=== PATIENT | female | born 2000 | race Caucasian/White ===

== ENCOUNTER → 2019-08-13 | Outpatient (REF) | LOC: M LAB LCGH 15:49 | PROVIDERS: ATTEND Obstetrics & Gynecology | DX: O28.1 Abnormal biochemical finding on antenatal screening of mother (principal); Z3A.00 Weeks of gestation of pregnancy not specified ==

== ENCOUNTER → 2023-12-25 | Outpatient (REF) | LOC: M EMP 09:23 | PROVIDERS: ATTEND Family Medicine | DX: Z11.52 Encounter for screening for COVID-19 (principal) ==

== ENCOUNTER → 2023-12-25 | Outpatient (REF) | LOC: M EMP 09:21 | PROVIDERS: ATTEND Family Medicine | DX: Z11.52 Encounter for screening for COVID-19 (principal) ==

== ENCOUNTER 2024-01-15 05:47 | Emergency (ER) | payer OTHER ==
[~2024-01-15] VITALS: Ht 177.8 cm; Wt 72.0 kg
[2024-01-15 07:15] LABS: BASO # 0.1 10^3/uL (0.0-0.2); BASO % 0.6 % (0.0-1.0); EOS # 0.2 10^3/uL (0.0-0.5); EOS % 1.5 % (0.0-3.0); HEMATOCRIT 42.9 % (36.0-47.0); HEMOGLOBIN 13.6 g/dl (12.0-15.5); LYMPH # 2.3 10^3/uL (1.5-5.0); LYMPH % 21.4 % (24.0-44.0); MEAN CORPUSCULAR HEMOGLOBIN 28.1 pg (27.0-33.0); MEAN CORPUSCULAR HGB CONC 31.7 g/dl (32.0-36.5); MEAN CORPUSCULAR VOLUME 88.6 fl (80.0-96.0); MONO # 0.7 10^3/uL (0.0-0.8); MONO % 6.7 % (2.0-8.0); NEUTROPHILS # 7.4 10^3/uL (1.5-8.5); NEUTROPHILS % 69.4 % (36.0-66.0); PLATELET COUNT, AUTOMATED 213 10^3/uL (150-450); RED BLOOD COUNT 4.84 10^6/uL (4.00-5.40); WHITE BLOOD COUNT 10.7 10^3/uL (4.0-10.0)
[2024-01-15] MEDS ORDERED: NITR100C3 PO (07:36)
[2024-01-15 07:51] VITALS: BP 121/72; TEMP 97.8; O2SAT 99
[2024-01-15] MEDS: NAPROXEN 250 MG TAB PO ONE (07:54)
[2024-01-15] MEDS: NITROFURANTOIN (MACROBID) 100 MG CAP PO ONE (07:54)
== END 2024-01-15 08:32 | disposition home or self-care (01) ==
LOC: M ED 05:47
DX: N30.00 Acute cystitis without hematuria (principal); F41.9 Anxiety disorder, unspecified; Z88.5 Allergy status to narcotic agent

== ENCOUNTER 2024-04-21 19:57 | Emergency (ER) | payer OTHER ==
[~2024-04-21] VITALS: Ht 177.8 cm; Wt 73.7 kg
[~2024-04-21 19:57] MED LIST: NITR100C3 PO
[2024-04-21 20:00] VITALS: BP 111/70; TEMP 98.2; O2SAT 100
[2024-04-21 21:00] LABS: BASO % 0.3 % (0.0-1.0); EOS # 0.2 10^3/uL (0.0-0.5); EOS % 2.2 % (0.0-3.0); HEMATOCRIT 35.3 % (36.0-47.0); HEMOGLOBIN 11.9 g/dl (12.0-15.5); LYMPH # 2.4 10^3/uL (1.5-5.0); LYMPH % 25.2 % (24.0-44.0); MEAN CORPUSCULAR HEMOGLOBIN 29.8 pg (27.0-33.0); MEAN CORPUSCULAR HGB CONC 33.7 g/dl (32.0-36.5); MEAN CORPUSCULAR VOLUME 88.5 fl (80.0-96.0); MONO # 0.6 10^3/uL (0.0-0.8); MONO % 5.8 % (2.0-8.0); NEUTROPHILS # 6.3 10^3/uL (1.5-8.5); NEUTROPHILS % 66.3 % (36.0-66.0); PLATELET COUNT, AUTOMATED 149 10^3/uL (150-450); RED BLOOD COUNT 3.99 10^6/uL (4.00-5.40); WHITE BLOOD COUNT 9.5 10^3/uL (4.0-10.0)
[2024-04-21 21:33] LABS: CPK CREATINE PHOSPHOKINASE 27 U/L (34-145)
[2024-04-21 21:34] LABS: ALBUMIN 3.1 G/DL (3.2-5.2); ALKALINE PHOSPHATASE 58 U/L (35-104); ALT/SGPT < 9 U/L (7.0-40); AST/SGOT < 8 U/L (<34); BILIRUBIN,DIRECT < 0.1 MG/DL (<0.4); BILIRUBIN,TOTAL 0.2 MG/DL (0.3-1.2); BLOOD UREA NITROGEN 11 MG/DL (9-23); CALCIUM LEVEL 8.9 MG/DL (8.5-10.1); CARBON DIOXIDE LEVEL 24 MMOL/L (20-31); CHLORIDE LEVEL 109 MMOL/L (98-107); CK-MB VALUE MASS < 1.0 NG/ML (<3.6); GLOMERULAR FILTRATION RATE > 60.0 (>60); GLUCOSE, FASTING 87 MG/DL (60-100); POTASSIUM SERUM 3.6 MMOL/L (3.5-5.1); SODIUM LEVEL 139 MMOL/L (136-145); TOTAL PROTEIN 6.1 G/DL (5.7-8.2)
== END 2024-04-21 22:53 | disposition left against medical advice (07) ==
LOC: M ED 19:57
DX: Z53.21 Procedure and treatment not carried out due to patient leaving prior to being seen by health care provider (principal)

== ENCOUNTER 2024-04-23 05:06 | Emergency (ER) | payer OTHER ==
[~2024-04-23] VITALS: Ht 177.8 cm; Wt 73.3 kg
[2024-04-23] MEDS ORDERED: ASPI81CH33 PO (05:26)
[2024-04-23] MEDS ORDERED: MULTTAB20 PO (05:26)
[2024-04-23] MEDS ORDERED: diphenhydrAMINE 50MG/ML VIAL IV STA (06:42)
[2024-04-23] MEDS ORDERED: METOCLOPRAMIDE INJ 10MG/2ML VIAL IV ONE (06:45)
[2024-04-23] MEDS: MAGNESIUM OXIDE 400MG TAB (MAG-OX) PO ONE (07:01)
[2024-04-23] MEDS: diphenhydrAMINE 25MG CAP PO ONE (07:19)
[2024-04-23] MEDS: METOCLOPRAMIDE 10MG TAB PO ONE (07:19)
[2024-04-23] MEDS ORDERED: AZITHROMYCIN 250MG TABLET PO ONE (08:45)
[2024-04-23] MEDS ORDERED: BENA25CA4 PO (09:02)
[2024-04-23] MEDS ORDERED: REGL10TA6 PO (09:02)
[2024-04-23 09:12] VITALS: BP 116/57; TEMP 98.1; O2SAT 100
== END 2024-04-23 09:13 | disposition home or self-care (01) ==
LOC: M ED 05:06
DX: O99.352 Diseases of the nervous system complicating pregnancy, second trimester (principal); R51.9 Headache, unspecified; R04.0 Epistaxis; J45.909 Unspecified asthma, uncomplicated; I10 Essential (primary) hypertension; Z87.891 Personal history of nicotine dependence; Z88.0 Allergy status to penicillin; Z88.2 Allergy status to sulfonamides; Z88.5 Allergy status to narcotic agent; Z79.82 Long term (current) use of aspirin; Z79.899 Other long term (current) drug therapy; Z3A.15 15 weeks gestation of pregnancy

== ENCOUNTER 2024-08-14 21:06 | Outpatient (CLI) | payer OTHER ==
[~2024-08-14] VITALS: Ht 177.8 cm; Wt 87.6 kg
[~2024-08-14 21:06] MED LIST changes: +ASPI81CH33 PO; +BENA25CA4 PO; +MULTTAB20 PO; +REGL10TA6 PO
[2024-08-14 21:27] VITALS: BP 121/67
== END 2024-08-14 22:37 | disposition home or self-care (01) ==
LOC: M LDO 21:06
PROVIDERS: ATTEND Obstetrics & Gynecology
DX: O26.893 Other specified pregnancy related conditions, third trimester (principal); M54.50 Low back pain, unspecified; Z3A.30 30 weeks gestation of pregnancy
CPT/HCPCS: 59025; G0463

== ENCOUNTER 2024-08-20 15:36 | Emergency (ER) | payer OTHER ==
[~2024-08-20] VITALS: Ht 177.8 cm; Wt 87.0 kg
[2024-08-20 15:40] VITALS: TEMP 95.8
[2024-08-20 17:13] VITALS: O2SAT 98
[2024-08-20] MEDS: NS (Normal Saline) 0.9% 1,000 ML IV ONE (18:37)
[2024-08-20 19:09] LABS: BASO % 0.2 % (0.0-1.0); EOS # 0.1 10^3/uL (0.0-0.5); EOS % 0.9 % (0.0-3.0); HEMATOCRIT 35.1 % (36.0-47.0); HEMOGLOBIN 11.3 g/dl (12.0-15.5); LYMPH # 2.4 10^3/uL (1.5-5.0); LYMPH % 18.4 % (24.0-44.0); MEAN CORPUSCULAR HEMOGLOBIN 28.1 pg (27.0-33.0); MEAN CORPUSCULAR HGB CONC 32.2 g/dl (32.0-36.5); MEAN CORPUSCULAR VOLUME 87.3 fl (80.0-96.0); MONO # 0.7 10^3/uL (0.0-0.8); MONO % 5.2 % (2.0-8.0); NEUTROPHILS # 9.5 10^3/uL (1.5-8.5); NEUTROPHILS % 74.4 % (36.0-66.0); PLATELET COUNT, AUTOMATED 149 10^3/uL (150-450); RED BLOOD COUNT 4.02 10^6/uL (4.00-5.40); WHITE BLOOD COUNT 12.8 10^3/uL (4.0-10.0)
[2024-08-20 20:04] VITALS: BP 116/60; O2SAT 99
== END 2024-08-20 20:06 | disposition home or self-care (01) ==
LOC: M ED 15:36
DX: O99.513 Diseases of the respiratory system complicating pregnancy, third trimester (principal); R06.02 Shortness of breath; I10 Essential (primary) hypertension; J45.909 Unspecified asthma, uncomplicated; Z88.2 Allergy status to sulfonamides; Z88.5 Allergy status to narcotic agent; Z88.0 Allergy status to penicillin; Z91.048 Other nonmedicinal substance allergy status; Z3A.32 32 weeks gestation of pregnancy; Z79.82 Long term (current) use of aspirin; Z79.899 Other long term (current) drug therapy

== ENCOUNTER 2024-08-31 20:10 | Outpatient (CLI) | payer OTHER ==
[~2024-08-31] VITALS: Ht 177.8 cm; Wt 90.2 kg
[2024-08-31 20:41] VITALS: BP 119/71
== END 2024-08-31 21:30 | disposition home or self-care (01) ==
LOC: M LDO 20:10
PROVIDERS: ATTEND Obstetrics & Gynecology
DX: O36.8130 Decreased fetal movements, third trimester, not applicable or unspecified (principal); Z3A.35 35 weeks gestation of pregnancy
CPT/HCPCS: 59025; G0463

== ENCOUNTER → 2024-09-03 | Outpatient (CLI) | payer OTHER ==
[2024-09-03 11:06] LABS: HEMATOCRIT 34.3 % (36.0-47.0); HEMOGLOBIN 10.9 g/dl (12.0-15.5); MEAN CORPUSCULAR HEMOGLOBIN 27.3 pg (27.0-33.0); MEAN CORPUSCULAR HGB CONC 31.8 g/dl (32.0-36.5); PLATELET COUNT, AUTOMATED 143 10^3/uL (150-450); RED BLOOD COUNT 3.99 10^6/uL (4.00-5.40); WHITE BLOOD COUNT 15.7 10^3/uL (4.0-10.0)
[2024-09-03 11:18] LABS: URIC ACID 3.8 MG/DL (3.1-7.8)
[2024-09-03 11:20] LABS: LDH LACTATE DEHYDROGENASE 199 U/L (120-246)
[2024-09-03 11:21] LABS: ALT/SGPT 16 U/L (7.0-40); AST/SGOT 13 U/L (<34); BILIRUBIN,TOTAL 0.3 MG/DL (0.3-1.2); CREATININE FOR GFR 0.58 MG/DL (0.55-1.30); GLOMERULAR FILTRATION RATE > 60.0 (>60)
[2024-09-03 11:53] LABS: HIV 1&2 SCREEN NEGATIVE (NEGATIVE)
[2024-09-03 12:01] LABS: HEPATITIS C VIRUS ABY INDEX 0.02 INDEX (<0.8)
== END ==
LOC: M PLALAB 09:15
PROVIDERS: ATTEND Obstetrics & Gynecology
DX: Z34.93 Encounter for supervision of normal pregnancy, unspecified, third trimester (principal)

== ENCOUNTER → 2024-09-03 | Outpatient (REF) | payer OTHER ==
[2024-09-03 12:02] LABS: CREATININE,RANDOM URINE 79.1 MG/DL
[2024-09-03 12:05] LABS: TOTAL PROTEIN,RANDOM URINE < 6.0 MG/DL (0.0-14.0)
[2024-09-03 13:41] LABS: GC DNA AMPLIFICATION NEGATIVE (NEGATIVE)
[2024-09-05 14:14] LABS: Trichomonas vaginalis (AMP) NOT DETECTED (NEGATIVE)
== END ==
LOC: M SFHCWAGY 10:33
PROVIDERS: ATTEND Obstetrics & Gynecology
DX: O09.299 Supervision of pregnancy with other poor reproductive or obstetric history, unspecified trimester (principal); Z3A.00 Weeks of gestation of pregnancy not specified

== ENCOUNTER → 2024-09-03 | Outpatient (REF) | payer OTHER | LOC: M PLALAB 08:57 | PROVIDERS: ATTEND Obstetrics & Gynecology | DX: Z53.9 Procedure and treatment not carried out, unspecified reason (principal) ==

== ENCOUNTER 2024-09-09 16:42 | Outpatient (CLI) | payer OTHER ==
[~2024-09-09] VITALS: Ht 177.8 cm; Wt 89.9 kg
[2024-09-09] MEDS ORDERED: ONDA-282 PO (16:57)
[2024-09-09] MEDS ORDERED: OMEP10CASR PO (16:57)
[2024-09-09 17:04] VITALS: BP 126/76
[2024-09-09] MEDS ORDERED: HOME MED LIST COMPLETE! XX SCH (17:25)
[2024-09-09 17:30] VITALS: BP 135/73
[2024-09-09] MEDS: FIORICET TAB PO ONE (17:31)
[2024-09-09 17:45] LABS: URIC ACID 3.7 MG/DL (3.1-7.8)
[2024-09-09 17:48] LABS: ALBUMIN 2.8 G/DL (3.2-5.2); ALKALINE PHOSPHATASE 148 U/L (35-104); ALT/SGPT 11 U/L (7.0-40); AST/SGOT 12 U/L (<34); BILIRUBIN,TOTAL 0.2 MG/DL (0.3-1.2); BLOOD UREA NITROGEN 6 MG/DL (9-23); CALCIUM LEVEL 8.7 MG/DL (8.5-10.1); CARBON DIOXIDE LEVEL 21 MMOL/L (20-31); CHLORIDE LEVEL 107 MMOL/L (98-107); CREATININE FOR GFR 0.59 MG/DL (0.55-1.30); GLOMERULAR FILTRATION RATE > 60.0 (>60); GLUCOSE, FASTING 65 MG/DL (60-100); SODIUM LEVEL 140 MMOL/L (136-145); TOTAL PROTEIN 6.7 G/DL (5.7-8.2)
[2024-09-09 17:53] LABS: AMORPHOUS SEDIMENT SMALL (NEGATIVE); APPEARANCE, URINE HAZY (CLEAR); BACTERIA, URINE AUTO 1+ (NEGATIVE); BILIRUBIN, URINE AUTO NEGATIVE (NEGATIVE); BLOOD, URINE BLOOD NEGATIVE (NEGATIVE); COLOR, URINE STRAW (YELLOW); GLUCOSE, URINE (UA) AUTO NEGATIVE (NEGATIVE); KETONE, URINE AUTO NEGATIVE (NEGATIVE); LEUKOCYTE ESTERASE, URINE AUTO NEGATIVE (NEGATIVE); NITRITE, URINE AUTO NEGATIVE (NEGATIVE); PROTEIN, URINE AUTO NEGATIVE (NEGATIVE); RBC, URINE AUTO 1 /HPF (0-3); SPECIFIC GRAVITY URINE AUTO 1.004 (1.002-1.035); SQUAMOUS EPITHELIAL CELL UR AU 3 /HPF (0-6); UROBILINOGEN, URINE AUTO 0.2 mg/dL (0.0-2.0); WBC, URINE AUTO 1 /HPF (0-3)
[2024-09-09 19:02] LABS: CREATININE,RANDOM URINE 35.1 MG/DL
[2024-09-09 19:05] LABS: TOTAL PROTEIN,RANDOM URINE < 6.0 MG/DL (0.0-14.0)
== END 2024-09-09 18:30 | disposition home or self-care (01) ==
LOC: M LDO 16:42
PROVIDERS: ATTEND Obstetrics & Gynecology
DX: O13.3 Gestational [pregnancy-induced] hypertension without significant proteinuria, third trimester (principal); Z3A.34 34 weeks gestation of pregnancy; Z88.0 Allergy status to penicillin; Z88.2 Allergy status to sulfonamides; Z88.5 Allergy status to narcotic agent; Z91.048 Other nonmedicinal substance allergy status
CPT/HCPCS: 36415; 59025; 80053; 81001; 82570; 84156; 84550; G0463

== ENCOUNTER 2024-09-12 13:48 | Outpatient (CLI) | payer OTHER ==
[~2024-09-12] VITALS: Ht 177.8 cm; Wt 89.9 kg
[~2024-09-12 13:48] MED LIST changes: +OMEP10CASR PO; +ONDA-282 PO
[2024-09-12] MEDS ORDERED: calcium,mag,zinc PO (14:09)
[2024-09-12] MEDS ORDERED: FIOR1CAP PO (14:11)
[2024-09-12] MEDS ORDERED: ZOLO25TA PO (14:11)
[2024-09-12] MEDS ORDERED: ACET-897 PO (14:11)
[2024-09-12 14:17] VITALS: BP 125/65; O2SAT 99
[2024-09-12 14:59] VITALS: BP 122/87
[2024-09-12 15:02] VITALS: BP 130/73
[2024-09-12 15:18] LABS: HEMATOCRIT 33.2 % (36.0-47.0); HEMOGLOBIN 10.6 g/dl (12.0-15.5); MEAN CORPUSCULAR HEMOGLOBIN 26.8 pg (27.0-33.0); MEAN CORPUSCULAR HGB CONC 31.9 g/dl (32.0-36.5); MEAN CORPUSCULAR VOLUME 83.8 fl (80.0-96.0); PLATELET COUNT, AUTOMATED 175 10^3/uL (150-450); RED BLOOD COUNT 3.96 10^6/uL (4.00-5.40); WHITE BLOOD COUNT 12.8 10^3/uL (4.0-10.0)
[2024-09-12 15:24] LABS: URIC ACID 4.3 MG/DL (3.1-7.8)
[2024-09-12 15:27] LABS: LDH LACTATE DEHYDROGENASE 200 U/L (120-246)
[2024-09-12 15:28] LABS: ALT/SGPT 12 U/L (7.0-40); AST/SGOT 13 U/L (<34); BILIRUBIN,TOTAL 0.3 MG/DL (0.3-1.2); CREATININE FOR GFR 0.61 MG/DL (0.55-1.30); GLOMERULAR FILTRATION RATE > 60.0 (>60)
[2024-09-12 15:41] LABS: CREATININE,RANDOM URINE 42.2 MG/DL
[2024-09-12 15:46] LABS: TOTAL PROTEIN,RANDOM URINE < 6.0 MG/DL (0.0-14.0)
[2024-09-12 16:02] VITALS: O2SAT 99
== END 2024-09-12 16:15 | disposition home or self-care (01) ==
LOC: M LDO 13:48
PROVIDERS: ATTEND Specialist
DX: O13.3 Gestational [pregnancy-induced] hypertension without significant proteinuria, third trimester (principal); Z87.59 Personal history of other complications of pregnancy, childbirth and the puerperium; Z3A.34 34 weeks gestation of pregnancy
CPT/HCPCS: 59025; 82247; 82570; 83615; 84156; 84450; 84460; 84550; 85027; G0463

== ENCOUNTER 2024-09-15 16:44 | Outpatient (CLI) | payer OTHER ==
[~2024-09-15] VITALS: Ht 177.8 cm; Wt 90.4 kg
[~2024-09-15 16:44] MED LIST changes: +ACET-897 PO; +FIOR1CAP PO; +ZOLO25TA PO; +calcium,mag,zinc PO
[2024-09-15 17:10] VITALS: BP 117/71
[2024-09-15] MEDS ORDERED: HOME MED LIST COMPLETE! XX SCH (17:10)
[2024-09-15 18:25] LABS: HEMATOCRIT 33.5 % (36.0-47.0); HEMOGLOBIN 10.4 g/dl (12.0-15.5); MEAN CORPUSCULAR HEMOGLOBIN 26.3 pg (27.0-33.0); MEAN CORPUSCULAR VOLUME 84.6 fl (80.0-96.0); PLATELET COUNT, AUTOMATED 176 10^3/uL (150-450); RED BLOOD COUNT 3.96 10^6/uL (4.00-5.40)
[2024-09-15 18:37] LABS: LIPASE 35 U/L (12-53)
[2024-09-15 18:38] LABS: AMYLASE 91 U/L (30-118)
[2024-09-15 18:39] LABS: ALBUMIN 2.6 G/DL (3.2-5.2); ALKALINE PHOSPHATASE 144 U/L (35-104); ALT/SGPT 11 U/L (7.0-40); AST/SGOT 12 U/L (<34); BILIRUBIN,TOTAL 0.3 MG/DL (0.3-1.2); BLOOD UREA NITROGEN 7 MG/DL (9-23); CALCIUM LEVEL 8.7 MG/DL (8.5-10.1); CARBON DIOXIDE LEVEL 24 MMOL/L (20-31); CHLORIDE LEVEL 108 MMOL/L (98-107); CREATININE FOR GFR 0.66 MG/DL (0.55-1.30); GLOMERULAR FILTRATION RATE > 60.0 (>60); GLUCOSE, FASTING 98 MG/DL (60-100); POTASSIUM SERUM 3.7 MMOL/L (3.5-5.1); SODIUM LEVEL 141 MMOL/L (136-145); TOTAL PROTEIN 6.3 G/DL (5.7-8.2)
[2024-09-15 19:16] LABS: ATYPICAL LYMPH 1 % (0-5); EOSINOPHILS 3 % (0-3); LYMPHOCYTES 19 % (16-44); MONOCYTES 5 % (0-5); NEUTROPHILS 70 % (28-66); PLATELET ESTIMATE NORMAL (NORMAL)
[2024-09-15 19:51] VITALS: BP 127/66
== END 2024-09-15 19:55 | disposition home or self-care (01) ==
LOC: M LDO 16:44
PROVIDERS: ATTEND Advanced Practice Midwife
DX: O26.893 Other specified pregnancy related conditions, third trimester (principal); O13.3 Gestational [pregnancy-induced] hypertension without significant proteinuria, third trimester; O09.299 Supervision of pregnancy with other poor reproductive or obstetric history, unspecified trimester; O99.013 Anemia complicating pregnancy, third trimester; O99.820 Streptococcus B carrier state complicating pregnancy; M54.50 Low back pain, unspecified; D50.9 Iron deficiency anemia, unspecified; Z88.0 Allergy status to penicillin; Z88.5 Allergy status to narcotic agent; Z91.013 Allergy to seafood; Z91.030 Bee allergy status; Z3A.34 34 weeks gestation of pregnancy
CPT/HCPCS: 36415; 59025; 80053; 82150; 83690; 85025; G0463

== ENCOUNTER → 2024-09-16 | Outpatient (REF) | payer OTHER ==
[~2024-09-16] MED LIST changes: +LABE100T6 PO
== END ==
LOC: M PLALAB 15:03
PROVIDERS: ATTEND Nurse Practitioner Family
DX: O13.3 Gestational [pregnancy-induced] hypertension without significant proteinuria, third trimester (principal); O09.293 Supervision of pregnancy with other poor reproductive or obstetric history, third trimester; O99.013 Anemia complicating pregnancy, third trimester; D50.9 Iron deficiency anemia, unspecified; O99.820 Streptococcus B carrier state complicating pregnancy; Z3A.35 35 weeks gestation of pregnancy

== ENCOUNTER 2024-09-19 16:48 | Emergency (ER) | payer OTHER ==
[~2024-09-19 16:48] MED LIST changes: -LABE100T6 PO
[2024-09-19] MEDS ORDERED: LABE100T6 PO (17:04)
[2024-09-19 17:07] VITALS: TEMP 97.9
[2024-09-19 17:52] LABS: KETONE, URINE AUTO RFX NEGATIVE (NEGATIVE); NITRITE, URINE AUTO RFX NEGATIVE (NEGATIVE); RBC, URINE AUTO RFX 3 /HPF (0-3); SQUAM EPITHELIAL CELL UR AURFX 15 /HPF (0-6); WBC, URINE AUTO RFX 5 /HPF (0-3)
[2024-09-19 17:57] LABS: LEUKOCYTE ESTERASE UR AUTO RFX TRACE (NEGATIVE)
[2024-09-19 18:04] LABS: BASO % 0.2 % (0.0-1.0); EOS # 0.1 10^3/uL (0.0-0.5); EOS % 0.9 % (0.0-3.0); HEMATOCRIT 34.4 % (36.0-47.0); HEMOGLOBIN 10.6 g/dl (12.0-15.5); LYMPH # 2.3 10^3/uL (1.5-5.0); LYMPH % 16.9 % (24.0-44.0); MEAN CORPUSCULAR HEMOGLOBIN 25.7 pg (27.0-33.0); MEAN CORPUSCULAR HGB CONC 30.8 g/dl (32.0-36.5); MEAN CORPUSCULAR VOLUME 83.3 fl (80.0-96.0); MONO # 0.8 10^3/uL (0.0-0.8); MONO % 5.5 % (2.0-8.0); NEUTROPHILS # 10.3 10^3/uL (1.5-8.5); NEUTROPHILS % 75.6 % (36.0-66.0); PLATELET COUNT, AUTOMATED 198 10^3/uL (150-450); RED BLOOD COUNT 4.13 10^6/uL (4.00-5.40); WHITE BLOOD COUNT 13.6 10^3/uL (4.0-10.0)
[2024-09-19 18:25] LABS: CK-MB VALUE MASS 3.5 NG/ML (<3.6)
[2024-09-19 18:27] LABS: ALBUMIN 2.8 G/DL (3.2-5.2); ALKALINE PHOSPHATASE 166 U/L (35-104); ALT/SGPT 12 U/L (7.0-40); AST/SGOT 13 U/L (<34); BILIRUBIN,DIRECT < 0.1 MG/DL (<0.4); BILIRUBIN,TOTAL 0.3 MG/DL (0.3-1.2); BLOOD UREA NITROGEN 6 MG/DL (9-23); CALCIUM LEVEL 8.5 MG/DL (8.5-10.1); CARBON DIOXIDE LEVEL 22 MMOL/L (20-31); CHLORIDE LEVEL 108 MMOL/L (98-107); CPK CREATINE PHOSPHOKINASE 112 U/L (34-145); CREATININE FOR GFR 0.67 MG/DL (0.55-1.30); GLOMERULAR FILTRATION RATE > 60.0 (>60); GLUCOSE, FASTING 87 MG/DL (60-100); MB/CK RELATIVE INDEX 3.12 (< OR =4); POTASSIUM SERUM 3.8 MMOL/L (3.5-5.1); SODIUM LEVEL 141 MMOL/L (136-145); TOTAL PROTEIN 6.8 G/DL (5.7-8.2)
[2024-09-19 20:00] VITALS: BP 123/59; O2SAT 99
== END 2024-09-19 20:33 | disposition admitted as inpatient to this hospital (09) ==
LOC: M ED 16:48
DX: O99.413 Diseases of the circulatory system complicating pregnancy, third trimester (principal); R07.9 Chest pain, unspecified; J45.909 Unspecified asthma, uncomplicated; Z88.0 Allergy status to penicillin; Z88.2 Allergy status to sulfonamides; Z88.5 Allergy status to narcotic agent; Z88.8 Allergy status to other drugs, medicaments and biological substances; Z79.82 Long term (current) use of aspirin; Z79.83 Long term (current) use of bisphosphonates; Z79.899 Other long term (current) drug therapy; Z3A.36 36 weeks gestation of pregnancy

== ENCOUNTER 2024-09-19 20:30 | Outpatient (CLI) | payer OTHER ==
[~2024-09-19] VITALS: Ht 177.8 cm; Wt 91.1 kg
[~2024-09-19 20:30] MED LIST changes: +LABE100T6 PO
[2024-09-19 20:44] VITALS: BP 130/67; O2SAT 100
== END 2024-09-19 22:00 | disposition home or self-care (01) ==
LOC: M LDO 20:30
PROVIDERS: ATTEND Advanced Practice Midwife
DX: O13.3 Gestational [pregnancy-induced] hypertension without significant proteinuria, third trimester (principal); O26.893 Other specified pregnancy related conditions, third trimester; R25.2 Cramp and spasm; Z3A.35 35 weeks gestation of pregnancy; Z87.59 Personal history of other complications of pregnancy, childbirth and the puerperium
CPT/HCPCS: 59025; G0463

== ENCOUNTER 2024-09-20 16:41 | Outpatient (CLI) | payer OTHER ==
[2024-09-20] VITALS (7 sets, daily range): BP systolic 113–147; BP diastolic 66–82
[~2024-09-20] VITALS: Ht 177.8 cm; Wt 92.6 kg
[2024-09-20 18:11] LABS: CREATININE,RANDOM URINE 45.8 MG/DL
[2024-09-20 18:18] LABS: TOTAL PROTEIN,RANDOM URINE < 6.0 MG/DL (0.0-14.0)
[2024-09-20 19:11] LABS: URIC ACID 3.7 MG/DL (3.1-7.8)
[2024-09-20 19:13] LABS: LDH LACTATE DEHYDROGENASE 191 U/L (120-246)
[2024-09-20 19:14] LABS: ALT/SGPT 11 U/L (7.0-40); AST/SGOT 14 U/L (<34); BILIRUBIN,TOTAL 0.3 MG/DL (0.3-1.2); CREATININE FOR GFR 0.65 MG/DL (0.55-1.30); GLOMERULAR FILTRATION RATE > 60.0 (>60)
== END 2024-09-20 18:30 | disposition home or self-care (01) ==
LOC: M LDO 16:41
PROVIDERS: ATTEND Obstetrics & Gynecology
DX: O13.3 Gestational [pregnancy-induced] hypertension without significant proteinuria, third trimester (principal); O99.343 Other mental disorders complicating pregnancy, third trimester; F41.9 Anxiety disorder, unspecified; Z3A.35 35 weeks gestation of pregnancy; Z79.82 Long term (current) use of aspirin; Z88.0 Allergy status to penicillin; Z88.2 Allergy status to sulfonamides; Z88.5 Allergy status to narcotic agent
CPT/HCPCS: 59025; 82247; 82570; 83615; 84156; 84450; 84460; 84550; G0463

== ENCOUNTER → 2024-09-26 | Outpatient (CLI) | payer OTHER | LOC: M WHC 06:31 | PROVIDERS: ATTEND Obstetrics & Gynecology | DX: Z34.93 Encounter for supervision of normal pregnancy, unspecified, third trimester (principal) ==

== ENCOUNTER 2024-09-30 07:29 | Inpatient (IN) | payer OTHER ==
[~2024-09-30] VITALS: Ht 177.8 cm; Wt 94.7 kg
[2024-09-30] VITALS (14 sets, daily range): BP systolic 109–137; BP diastolic 58–85
[2024-09-30] MEDS ORDERED: VENTAER INH (08:32)
[2024-09-30 08:37] LABS: HEMATOCRIT 30.4 % (36.0-47.0); HEMOGLOBIN 9.4 g/dl (12.0-15.5); MEAN CORPUSCULAR HEMOGLOBIN 25.3 pg (27.0-33.0); MEAN CORPUSCULAR HGB CONC 30.9 g/dl (32.0-36.5); MEAN CORPUSCULAR VOLUME 81.9 fl (80.0-96.0); PLATELET COUNT, AUTOMATED 176 10^3/uL (150-450); RED BLOOD COUNT 3.71 10^6/uL (4.00-5.40); WHITE BLOOD COUNT 14.1 10^3/uL (4.0-10.0)
[2024-09-30] MEDS ORDERED: TRANEXAMIC ACID INJection 1,000 MG in NS 100 ML IV PRN (09:05)
[2024-09-30] MEDS ORDERED: OXYTOCIN DRIP 30 UNITS in IV 1 EA IV PRN (09:05)
[2024-09-30] MEDS ORDERED: LIDOCAINE 1% MDV 20ML VIAL INFIL PRN (09:05)
[2024-09-30] MEDS ORDERED: CARBOPROST TROMETHAMINE 250 MCG/ML AMP IM PRN (09:05)
[2024-09-30 09:31] LABS: HIV 1&2 SCREEN NEGATIVE (NEGATIVE)
[2024-09-30] MEDS: miSOPROStol 50MCG 1/2 TABLET PO SCH (09:38)
[2024-09-30] MEDS: PENICILLIN G POTASSIUM 5 MU IV 5 MU in DEXTROSE 5% (D5W) MINI-BAG PLU 100 ML IV STA (09:38)
[2024-09-30 09:39] LABS: HEPATITIS C VIRUS ABY INDEX 0.03 INDEX (<0.8)
[2024-09-30] MEDS: PEN G POT 3,000,000 UNIT/50 ML 3,000,000 UNIT in IV 1 EA IV SCH (13:42)
[2024-09-30 15:29] LABS: CREATININE,RANDOM URINE 43.5 MG/DL
[2024-09-30 15:30] LABS: TOTAL PROTEIN,RANDOM URINE < 6.0 MG/DL (0.0-14.0)
[2024-09-30] MEDS: OXYTOCIN DRIP 30 UNITS in IV 1 EA IV SCH (21:48)
[2024-10-01] VITALS (61 sets, daily range): BP systolic 90–135; BP diastolic 50–79; TEMP 98.2; O2SAT 96–99
[2024-10-01] MEDS: LACTATED RINGER'S 1000 ML IV STA ×2 (02:17→19:42)
[2024-10-01] MEDS: LR 1,000 ML IV SCH ×3 (06:20→22:27)
[2024-10-01] MEDS ORDERED: ONDANSETRON 4MG 2ML VIAL IV PRN ×3 (10:05→21:20)
[2024-10-01] MEDS ORDERED: EPIDURAL/PCA KEYS XX PRN (10:05)
[2024-10-01] MEDS ORDERED: NALOXONE INJ 0.4MG/1ML VIAL IV PRN ×3 (10:05→21:20)
[2024-10-01] MEDS ORDERED: ePHEDrine SULFATE 25 MG/5 ML(5MG/ML) SYRINGE IVP PRN (10:05)
[2024-10-01] MEDS ORDERED: LR 500 ML IV PRN (10:05)
[2024-10-01] MEDS ORDERED: FENTANYL 2MCG/ML ROPIVACAINE 0.2% IN 0.9% NACL 100ML IVBAG As Ordered ONE (10:06)
[2024-10-01] MEDS: FENTANYL/ROPIVACAINE/NACL BAG 100 ML EPIDURAL SCH (10:37)
[2024-10-01] MEDS: diphenhydrAMINE 50MG/ML VIAL IV PRN ×2 (16:27→23:57)
[2024-10-01] MEDS ORDERED: MORPHINE PRES-FREE INJ 10 MG/10 ML VIAL As Ordered ONE (19:52)
[2024-10-01] MEDS ORDERED: OXYTOCIN INJ 10UNITS/ML 1ML VIAL As Ordered ONE (19:53)
[2024-10-01] MEDS ORDERED: OXYTOCIN 30UNITS IN 0.9% NaCl 500ML IV BAG As Ordered ONE (19:53)
[2024-10-01] MEDS ORDERED: ONDANSETRON 4MG 2ML VIAL As Ordered ONE (19:54)
[2024-10-01] MEDS: AZITHROMYCIN INJ 500 MG, VIAL MATE ADAPTER 1 EACH in NS 250 ML IV ONE (20:00)
[2024-10-01] MEDS: BICITRA 30ML SOLN UDC PO ONE (20:00)
[2024-10-01] MEDS: ceFAZolin SODIUM 2 GM in DEXTROSE 5% (D5W) ADV/MINI-BAG 50 ML IV ONE (20:00)
[2024-10-01] MEDS ORDERED: ACETAMINOPHEN 1000MG/100ML IV BAG As Ordered ONE (20:39)
[2024-10-01] MEDS ORDERED: KETOROLAC 30 MG/ML 1ML VIAL As Ordered ONE (20:39)
[2024-10-01] MEDS ORDERED: MEPERIDINE 50 MG/ML 1ML VIAL As Ordered ONE (20:43)
[2024-10-01] MEDS ORDERED: PHENYLephrine 500MCG 5ML (100MCG/ML) SYRINGE As Ordered ONE (20:52)
[2024-10-01] MEDS ORDERED: RHOGAM 300MCG (1500IU) INJ IM SCH (21:10)
[2024-10-01] MEDS: SLF 3 ML SYR IV SCH (21:20)
[2024-10-01] MEDS ORDERED: fentaNYL 100 MCG/2 ML INJECTION IV PRN (21:20)
[2024-10-01] MEDS ORDERED: **NOTE PATIENT COMMENT** MISC XX SCH (21:20)
[2024-10-01] MEDS ORDERED: METOCLOPRAMIDE INJ 10MG/2ML VIAL IV PRN (21:20)
[2024-10-01] MEDS ORDERED: oxyCODONE 5MG TAB As Ordered ONE (22:04)
[2024-10-01] MEDS: oxyCODONE 5MG TAB PO PRN (22:07)
[2024-10-01] MEDS: SIMETHICONE 80MG CHEW TAB PO PRN (23:56)
[2024-10-02] VITALS (7 sets, daily range): BP systolic 105–136; BP diastolic 52–69; O2SAT 96–100
[2024-10-02] MEDS: KETOROLAC 30 MG/ML 1ML VIAL IV SCH (03:54)
[2024-10-02 06:39] LABS: HEMATOCRIT 25.5 % (36.0-47.0); MEAN CORPUSCULAR HEMOGLOBIN 25.8 pg (27.0-33.0); MEAN CORPUSCULAR HGB CONC 31.4 g/dl (32.0-36.5); MEAN CORPUSCULAR VOLUME 82.3 fl (80.0-96.0); WHITE BLOOD COUNT 15.7 10^3/uL (4.0-10.0)
[2024-10-02 06:45] LABS: PLATELET COUNT, AUTOMATED 130 10^3/uL (150-450)
[2024-10-02] MEDS ORDERED: COLA100C5 PO (07:10)
[2024-10-02] MEDS ORDERED: OXYC1TAB23 PO (07:10)
[2024-10-02] MEDS ORDERED: IBUP80TA PO (07:10)
[2024-10-02] MEDS: PERCOCET 5MG/325MG TAB PO PRN ×2 (09:18→21:39)
[2024-10-02] MEDS: PRENATAL VITAMINS CHEWABLE TABLET PO SCH (09:20)
[2024-10-02] MEDS: DOCUSATE SODIUM 100MG CAPSULE PO PRN (20:34)
[2024-10-02] MEDS: IBUPROFEN 800 MG TAB PO SCH (23:09)
[2024-10-03 02:00] VITALS: BP 118/56; O2SAT 97
[2024-10-03 06:00] VITALS: BP 131/68; O2SAT 100
[2024-10-03] MEDS ORDERED: MEASLES,MUMPS,RUBELLA VACCINE INJ (MMR-II) SC.IMMUN ONE (09:00)
[2024-10-03 09:35] VITALS: BP 121/59; O2SAT 99
== END 2024-10-03 13:20 | disposition home or self-care (01) | DRG 773 ==
LOC: M LDI 07:29 → M OBS 10-01 22:30
PROVIDERS: ADMIT Obstetrics & Gynecology; ATTEND Obstetrics & Gynecology
PROC: 10D00Z1 Extraction of Products of Conception, Low, Open Approach (ICD-10-PCS; principal; 2024-10-01 19:51)
DX: O13.4 Gestational [pregnancy-induced] hypertension without significant proteinuria, complicating childbirth (principal); O99.824 Streptococcus B carrier state complicating childbirth; D64.9 Anemia, unspecified; O99.02 Anemia complicating childbirth; Z37.0 Single live birth; Z3A.37 37 weeks gestation of pregnancy; Z88.2 Allergy status to sulfonamides; Z88.5 Allergy status to narcotic agent; Z88.0 Allergy status to penicillin; Z79.899 Other long term (current) drug therapy; Z79.82 Long term (current) use of aspirin; O62.0 Primary inadequate contractions; O61.0 Failed medical induction of labor

== ENCOUNTER 2025-04-07 17:07 | Emergency (ER) | payer OTHER ==
[~2025-04-07] VITALS: Ht 177.8 cm; Wt 82.8 kg
[~2025-04-07 17:07] MED LIST changes: +COLA100C5 PO; +IBUP80TA PO; +OXYC1TAB23 PO; +VENTAER INH
[2025-04-07 17:15] VITALS: BP 137/73; TEMP 98.4; O2SAT 98
== END 2025-04-07 18:26 | disposition left against medical advice (07) ==
LOC: M ED 17:07
DX: Z53.21 Procedure and treatment not carried out due to patient leaving prior to being seen by health care provider (principal)